=== PATIENT | female | born 2000 | race Caucasian/White ===

== ENCOUNTER 2024-04-09 21:24 | Emergency (ER) | payer OTHER, SELFPAY ==
[2024-04-09 21:31] VITALS: BP 134/83; PULSE 110; RESP 18; RESP 20; TEMP 36.7; O2SAT 99; BMI 44.9
--- NOTE | 2024-04-09 21:31 | ED.GENADULT ---
HPI - General Adult General Chief complaint: Unspecified Complaint, Adult Stated complaint: headache, low hemoglobin Time Seen by Provider: 04/09/24 21:29 History of Present Illness HPI narrative: CC: Headache, Short of Breath , Fatigue pt. with symptoms for a few days. had w/u done with and was prescribed iron , but has not picked them up yet. denies fevers, n/v, diarrhea. 23-year-old woman presenting to the emergency department concern of headache and potentially low hemoglobin. Review of records I see a hemoglobin of 9.2 on 04/08/2024, yesterday. Ferritin was 9.1 and TSH was 3.3 Underlying history she reports of PCOS. Since beginning of March has menstrual bleeding essentially every other week; sometimes a day or 2 of no bleeding or maybe even 4 days. Now has a total headache and went onto [employer] and says she probably should not done that. She was told that she should not take ibuprofen due to bleeding risk. Does not have any melena. No hematemesis. Brief abdominal pain earlier today and little bit of nausea that is resolved. I inquire if she would like me to treat her headache and she says well if she can take ibuprofen she just as soon do that at home. Uncertain health care coverage at this time but has needed to use [employer]. Has cut back hours at work. Becomes tearful as were discussing all of this. Over the years some attempts at or hormonal management but often forgets to take the pills is what I understand. It has been years since she had an ultrasound. She has been bleeding however this last week. Admittedly today was little bit less. She is going through a pad every 2 hours or so. Related Data Previous Rx's ?Medication ?Instructions ?Recorded medroxyprogesterone 10 mg tablet 20 mg (2 x 10 mg) PO DAILY 9 days 04/10/24 (Provera) #18 tabs Allergies Allergy/AdvReac Type Severity Reaction Status Date / Time No Known Drug Allergies Allergy Verified 04/09/24 21:34 Review of Systems Status of ROS: Reports: 6 or more systems reviewed and unremarkable except as noted in History and below [facility] Medical History No significant past medical history Surgical History No significant past surgical history Family History Maternal Grandfather Diabetes Father Alcohol dependence Social History Smoking Status: Never smoker Second hand tobacco smoke exposure: No How often do you have a drink containing alcohol: never AUDIT-C Alcohol total score: 0 Non-prescribed substance use: denies use Exam Narrative: Exam Narrative: Pleasant. A bit tearful initially. Breathing easily. Mucous membranes actually do not look particularly pale. Oropharynx is moist. Heart is tachycardic and in a regular rhythm. Lungs are clear. Well-perfused peripherally. No edema. Abdomen is soft nontender. No masses appreciated. Const: Vital Signs, click to edit/add: Vital Signs - 24 hr 04/09/24 21:31 04/09/24 21:31 04/10/24 00:26 Temperature 98.1 F 98 F Pulse Rate 107 H Pulse Rate [Right Pulse Oximeter] 110 H Respiratory Rate 20 18 Respiratory Rate [ Head] 18 Blood Pressure 105/75 Blood Pressure [Ri ght Upper Arm] 134/83 Pulse Oximetry 99 Oxygen Delivery Me thod Room Air Room Air 04/10/24 00:46 04/10/24 00:48 04/10/24 01:28 CDT Temperature 98.2 F 98.2 F 98.5 F Pulse Rate 103 H 97 96 Pulse Rate [Right Pulse Oximeter] Respiratory Rate 18 16 16 Respiratory Rate [ Head] Blood Pressure 99/64 92/62 92/64 Blood Pressure [Ri ght Upper Arm] Pulse Oximetry 98 98 98 Oxygen Delivery Me thod Room Air Room Air Room Air 04/10/24 01:33 CDT 04/10/24 01:35 CDT 04/10/24 01:50 CDT Temperature 98.5 F 98.4 F 98.5 F Pulse Rate 96 Pulse Rate [Right Pulse Oximeter] 100 98 Respiratory Rate 16 16 16 Respiratory Rate [ Head] Blood Pressure 93/63 Blood Pressure [Ri ght Upper Arm] 95/65 93/63 Pulse Oximetry 98 99 98 Oxygen Delivery Me thod Room Air Room Air Room Air 04/10/24 01:01 PRINCIPLE SOFTWARE ENGINEER 04/10/24 01:03 PRINCIPLE SOFTWARE ENGINEER 04/10/24 01:20 PRINCIPLE SOFTWARE ENGINEER Temperature 98.5 F 98.4 F 98.5 F Pulse Rate 96 98 Pulse Rate [Right Pulse Oximeter] 92 Respiratory Rate 16 94 H 14 Respiratory Rate [ Head] Blood Pressure 93/63 95/65 Blood Pressure [Ri ght Upper Arm] 107/95 H Pulse Oximetry 98 99 97 Oxygen Delivery Me thod Room Air Room Air Room Air 04/10/24 01:35 PRINCIPLE SOFTWARE ENGINEER Temperature 98.6 F Pulse Rate Pulse Rate [Right Pulse Oximeter] 99 Respiratory Rate 18 Respiratory Rate [ Head] Blood Pressure Blood Pressure [Ri ght Upper Arm] 98/69 Pulse Oximetry 98 Oxygen Delivery Me thod Room Air Documenting provider has reviewed patient's vital signs: yes Course Vital Signs Vital signs: Initial Vital Signs Temperature 98.1 F 04/09/24 21:31 Temperature Source Temporal Artery Scan 04/09/24 21:31 Pulse Rate 110 H 04/09/24 21:31 Respiratory Rate 20 04/09/24 21:31 Blood Pressure 134/83 04/09/24 21:31 Blood Pressure Mean 100 04/09/24 21:31 Blood Pressure Position Sitting 04/09/24 21:31 Pulse Oximetry 99 04/09/24 21:31 Oxygen Delivery Method Room Air 04/09/24 21:31 Vital Signs Temperature 98.1 F 04/09/24 21:31 Pulse Rate 110 H 04/09/24 21:31 Respiratory Rate 20 04/09/24 21:31 Blood Pressure 134/83 04/09/24 21:31 Pulse Oximetry 99 04/09/24 21:31 Oxygen Delivery Method Room Air 04/09/24 21:31 Temperature 98.6 F 04/10/24 01:35 PRINCIPLE SOFTWARE ENGINEER Pulse Rate 99 04/10/24 01:35 PRINCIPLE SOFTWARE ENGINEER Respiratory Rate 18 04/10/24 01:35 PRINCIPLE SOFTWARE ENGINEER Blood Pressure 98/69 04/10/24 01:35 PRINCIPLE SOFTWARE ENGINEER Pulse Oximetry 98 04/10/24 01:35 PRINCIPLE SOFTWARE ENGINEER Oxygen Delivery Method Room Air 04/10/24 01:35 PRINCIPLE SOFTWARE ENGINEER Medications Administered Medications: Discontinued Medications Generic Name Dose Route Start Last Admin Trade Name Freq PRN Reason Stop Dose Admin Medroxyprogesterone Acetate 60 mg 04/09/24 23:40 04/09/24 23:58 Medroxyprogesterone 5 Mg Tablet PO 04/09/24 23:41 60 mg ONCE ONE Administration Medical Decision Making MDM Narrative Medical decision making narrative: Is describing what is likely intermittent on long-term menometrorrhagia with a history of PCOS. Would likely need some hormonal management. Does have symptoms of anemia. I do think it would be good idea to repeat hemoglobin. Given a dose of ibuprofen for headache in the interim. Hemoglobin comes back admittedly surprisingly low at 6.9. This is a drop of 2.3 g since yesterday. I did discuss this case with OBGYN banjo repair person for further recommendation. She does decline a speculum exam and so we proceed only with transvaginal ultrasound. Reported to me by lap hand tool as evidence of PCOS and thickened endometrium. Also bleeding lightly. Parents arrive to accompany. She is symptomatic with active bleeding with a hemoglobin of less than 7 at this age I think would be prudent to transfuse. Ordered for a couple of units. Will try to manage here in the emergency department. Ordered for 60 mg medroxyprogesterone here in the emergency department. Bleeding did not increase over time here. Tolerated transfusions well. Reports feeling markedly improved. Radiology over-read of ultrasound as below. Discussed all findings with Delmis and her parents.. TECHNIQUE: Transvaginal pelvic ultrasound. COMPARISON: None. FINDINGS: Uterus measures 7.1 x 3.3 x 4.6 cm. Uterus is homogeneous in echotexture, without evidence of discrete mass lesion. Incidental nabothian cysts in the cervix. Endometrium: 11 mm in thickness. No sign of endometrial mass or fluid. Right ovary measures 4.1 x 2.7 x 2.8 cm. Right ovary is within normal limits. Normal-appearing color flow in the right ovary. Left ovary measures 3.9 x 2.7 x 3.1 cm. Left ovary is within normal limits. Normal-appearing color flow in the left ovary. No pelvic free fluid. IMPRESSION: 1. No ultrasound abnormality to strongly suggest cause for bleeding. 2. Incidental nabothian cysts in the cervix. See patient discharge plan for further discussion Medical Records Medical records reviewed: Yes I reviewed the patient's medical records Lab Data Lab results reviewed: Yes I reviewed the patient's lab results Labs: Lab Results 04/09/24 04/09/24 Range/Units 21:57 22:12 Hgb 6.9 L* (12.0-16.0) gm/dL HCG, Qual Negative (Negative) Lab Acknowledgement New Spec Needed Blood Type O Positive Antibody Screen NEGATIVE Crossmatch (AHG) See Detail Discharge Plan Discharge Clinical Impression: Menometrorrhagia, Anemia Additional Instructions: Abbie I did speak with hair boiler with [facility] on-call. Happened to be Dr. Carlson. Recommendations are to take this medroxyprogesterone (Provera) daily for 9 days. It is important that you take all of these pills as prescribed. Consider taking the prescribed iron pills. I would take vitamin-C with the iron tablets as well. Remember that iron can make you little constipated. Stay well-hydrated and eat your fruits and vegetables. I guess citrus could supply your vitamin-C. Follow-up with Dr. Mitchell or with [facility] 1 week. Please call 1st thing Thursday morning for an appointment. Be seen for bleeding such that you are soaking through 1 heavy pad an hour for 2 consecutive hours or feeling again short of breath or lightheaded. Prescriptions: New medroxyprogesterone [Provera] 10 mg tablet 20 mg PO DAILY 9 Days Qty: 18 0RF Follow Up/Referrals: Jeyson Ko MD [Staff Physician] - Stand Alone Forms: [employer] Info Instructions
[2024-04-09 22:09] LABS: Hemoglobin* 6.9 gm/dL (12.0-16.0)
--- OUTSIDE RECORDS SUMMARY | 2024-04-09 22:32 | XMS_ITS | Continuity of Care Document ---
Author Organization [place] - [facility] forrester [facility] Address [address] [place] [phone] Assessment No assessment recorded. Plan of Treatment Reminders Order Date Submit Date Provider Last Modified By Organization Details Last Modified Time Details Appointments None recorde d. Lab ferriti n, serum or plasma 2023 [facility], [address] [place] [address], [id number], 15:23:29 CBC w/ auto diff 2023 [facility], [address] [place] [address], [id number], 12:12:26 TSH, serum or plasma 2023 [facility], [address] [place] [address], [phone], 4 15:23:53 Referral None recorde d. Procedures None recorde d. Surgeries None recorde d. Imaging None recorde d. Medication Orders None recorde d. Patient TargetsNo targets recorded. Patient InstructionsNo instructions recorded. Reason for Referral None Reported. Problems Name Problem SNOMED Code Status Onset Date Resolution Date Notes Provider Name and Address Organization Details Recorded Time Polycystic ovary syndrome 730270950 Active 2020 [place] [address] [place] [address], [phone] , [facility] Emilee 1 15:04:08 Iron deficiency anemia 75392787 Active 2023 QIANA MALLOY MD [address] [place], [address], [facility]iodroid [facility] 4 20:40:58 Notes:Problem: Polycystic ov kike Status: Chronic Problem Notes None recorded. Medical Equipment None Reported. Allergies No known drug allergies Medications Name Sig Start Date Stop Date Status Note LastModified by Organization Details LastModified Time Iron (ferrous sulfate) 325 mg (65 mg iron) tablet Take 1 tablet every other day by oral route, for 3 months. 024 active Not Available Not Available Not Avai lable Mononessa (28) 0.25 mg-35 mcg tablet TAKE 1 TABLET BY ORAL ROUTE EVERY DAY 017 active Not Available Not Available Not Avai lable Isibloom 0.15 mg-0.03 mg tablet Take 1 tablet every day by oral route. active Not Available Not Available No t Available Vitals None Recorded Social History None recorded. Functional Status None recorded. Mental Status None recorded. Family History Relationship Description Onset Age of this Age Resolved Age Notes LastModified by Organization Details LastModified Time Mother Impaired glucose tolerance Not available 07/02 15:04:25 Father Family history of Father alive and well [email or web address] Not available 07/02 15:04:42 Medical History Condition Response ADD/ADHD Gynecological History Statement/Question Response Menses Monthly N Duration of Flow (days) 7 Age at Menarche 9 Flow Moderate LMP Approximate Sexually Active? N Obstetrics History GPAL:G 0 P 0 0 0 0 Immunizations Vaccine Type Date Status Provider Name and Address Organization Details Recorded Time COVID-19, mRNA, LNP-S, bivalent, PF, 30 mcg/0.3 mL dose 03/12/2022 completed SHANKAR HINTON [address] [place], [address], [facility]iodroid [facility] 03/12/2022 15:22:50 COVID-19, mRNA, LNP-S, PF, 30 mcg/0.3 mL dose, jalyn-sucrose 05/22/2021 completed SHANKAR HINTON [address] [place], [address], [facility] 05/22/2021 17:10:25 Past Encounters Encounter ID Performer Location Encounter Start Date Encounter Closed Date Diagnosis/Indication Diagnosis SNOMED-CT Code Diagnosis ICD10 Code [id number] QIANA MALLOY MD [facility] [address] [place] [address] 04/07/2024 14:47:17 04/07/2024 15:07:38 Excessive and frequent menstruation 488987326 N92.0 Polycystic ovary syndrome 657541292 E28.2 Health Concerns Section Related Observation LastModified by Organization Detai ls LastModified Time None Recorded Concern Status LastModified by Organization Details LastModified Time None Recorded Payers Encounter Date Sequence Insurance Name Policy Number Policy Morin Covered Member ID Morin Member ID Guarantor Name 04/07/2024 SLIDING FEE SCHEDULE - DISCOUNT Delmis Valenzuela Notes Date Note Type Note Provider Name and Address Organization Details Recorded Time 04/07/2024 text/html HPI Notes: 23 yo female here for telephone viist today. Paitent concerned because she has been having irregular/frequen t vaginal bleeding for the past 1 month. Some days heavy with clots. Hx pcos with irregular periods lmp october and then no periods until this past month - heavier and come and go. Thianks that she had about 3 periods in the past 1 year. SH: not sexually active so no possibility of QIANA MALLOY MD [address] [place], [address], [facility] 04/07/2024 16:50:40 OBGyn Episode No OBEpisode recorded.
--- OUTSIDE RECORDS SUMMARY | 2024-04-09 22:32 | XMS_ITS | Data Portability ---
Author Organization [place] [facility] [place] [facility] Address [address] [place] [phone] Assessment No assessment recorded. Plan of Treatment Reminders Order Date Submit Date Provider Last Modified By Organization Details Last Modified Time Details Appointments None recorde d. Lab glycohe moglobi n, total, blood 2020 [facility] Not available 10:33:57 CBC w/ auto diff 2020 [facility] Not available 13:45:21 TSH, serum or plasma 2020 [facility] Not available 14:52:07 ferriti n, serum or plasma 2023 [facility], [address] [place] [address], [phone], 15:23:29 CBC w/ auto diff 2023 [facility], [address] [place] [address], [phone], 4 12:12:26 TSH, serum or plasma 2023 [facility], [address] [place] [address], [phone], 15:23:53 Referral None recorde d. Procedures None recorde d. Surgeries None recorde d. Imaging None recorde d. Medication Orders Apri 0.15 mg-0.03 mg tablet 2020 021 [email or web address] Not available 15:02:23 Patient TargetsNo targets recorded. Patient Instructions Encounter Date Encounter Id Patient Instructions Last Modified By Organization Details Last Modified Time 07/02/2020 [id number] Vitamin D (2,000 International Units) every day. I'll call you with your lab results and I'll also want to know how your periods are going after 2-3 months on the pill. Expect some spotting this month; that is normal as your body gets adjusted to the hormones in the pill. [email or web address] Not available 07/02/2020 15:26:16 Reason for Referral None Reported. Results Created Date Observation Date Name Description Value Unit Range Abnormal Flag Note LastModifiedBy Organization Detail LastModifiedTime 07/04/19 21 07/04/2020 glyco hemog lobin , total , blood A1C 5.1 % <5.7 normal Not Available [facility] [address], [place], [address], 07/06/2020 09:10:44 09/12/19 22 09/11/2021 TSH, serum or plasm a TSH 2.09 Not Available Not Availa ble 09/12/2021 13:16:24 09/12/19 22 09/11/2021 CBC w/ diff white blood count 9.1 Not Available Not Available 12/2021 12:34:17 09/12/19 22 09/11/2021 CBC w/ diff hemoglobin 14.5 Not Available Not Jessica ilable 09/12/2021 12:34:17 09/12/19 22 09/11/2021 CBC w/ diff platelet count 203 Not Available Not Available 12/2021 12:34:17 09/12/19 22 09/11/2021 HbA1c (hemo globi n A1c), blood A1C 5.4 Not Available [place] [facility] [place], [address], 09/16/2021 21:59:19 06/23/19 24 06/23/2023 tb (M tuber culos is), ifn-g [facility] , blood interferon gold neg normal Not Available [facility] [address] [place], [address], 06/25/2023 21:05:40 Result Notes None recorded. Problems Name Problem SNOMED Code Status Onset Date Resolution Date Notes Provider Name and Address Organization Details Recorded Time Polycystic ovary syndrome 692352357 Active 2020 Norma Cornelius NP [address] [place], [address], [facility] 1 15:04:08 Iron deficiency anemia 94849709 Active 2023 QIANA MALLOY MD [address] [place], [address], [facility] 4 20:40:58 Notes:Problem: Polycystic ov kike Status: [...] Available Not Available No t Available Vitals Date Recorded Body height Body mass index (BMI) Body weight Heart rate Systolic blood pressure Diastolic blood pressure Provider Name and Address Organization Details Last Updated DateTime 1 151.77 cm 40.1 kg/m2 94714.6 9 g 90 /min 117 mm[Hg] 89 mm[Hg] Norma Cornelius NP [address] [place], [address], [facility] 1 14:37:02 Social History None recorded. Functional Status None recorded. Mental Status None recorded. Family History Relationship Description Onset Age of this Age Resolved Age Notes LastModified by Organization Details LastModified Time Mother Impaired glucose tolerance [email or web address] Not available 07/02 15:04:25 Father Family history of Father alive and well [email or web address] Not available 07/02 15:04:42 Medical History Condition [...] mcg/0.3 mL dose 03/12/2022 completed SHANKAR HINTON [address] [place] [address] [place], [address], [facility] 03/12/2022 15:22:50 COVID-19, mRNA, LNP-S, PF, 30 mcg/0.3 mL dose, jalyn-sucrose 05/22/2021 completed SHANKAR HINTON [address] [place] [address] [place], [address], [facility] 05/22/2021 17:10:25 Past Encounters Encounter ID Performer Location Encounter Start Date Encounter Closed Date Diagnosis/Indication Diagnosis SNOMED-CT Code Diagnosis ICD10 Code [id number] Norma Cornelius NP [facility] [address] [place] [address] [place] [address] 07/02/2020 14:15:55 07/02/2020 15:00:31 Polycystic ovary syndrome 767246899 E28.2 Fatigue 50617331 R53.83 Mood swings 40684901 R45 .86 Body mass index 30+ - obesity 764307275 Z68.41 [id number] SHANKAR HINTON [facility] [address] [place] [address] [place] [address] 05/22/2021 17:03:07 05/22/2021 18:00:46 Administration of SARS-CoV-2 mRNA vaccine 8880491861 Z23 [id number] SHANKAR HINTON [facility] [address] [place] [address] [place] [address] 03/12/2022 15:14:11 03/12/2022 16:05:37 Administration of SARS-CoV-2 mRNA vaccine 3062189557 Z23 [id number] QIANA MALLOY MD [facility] [address] [place] [address] 04/07/2024 14:47:17 04/07/2024 15:07:38 Excessive and frequent menstruation 316368953 N92.0 Polycystic ovary syndrome 379469626 E28.2 Health Concerns Section Related Observation LastModified by Organization Detai ls LastModified Time None Recorded Concern Status LastModified by Organization Details LastModified Time None Recorded Advance Directives Directive None Recorded Payers Encounter Date Sequence Insurance Name Policy Number Policy Morin Covered Member ID Morin Member ID Guarantor Name 07/02/2020 SLIDING FEE SCHEDULE - DISCOUNT Delmis Mazin Valenzuela 05/22/2021 SLIDING FEE SCHEDULE - DISCOUNT Delmis Mazin Valenzuela 03/12/2022 SLIDING FEE SCHEDULE - DISCOUNT Delmis Mazin Valenzuela 04/07/2024 SLIDING FEE SCHEDULE - DISCOUNT Delmiskostas Valenzuela Notes Date Note Type Note Provider Name and Address Organization Details Recorded Time 07/02/2020 text/html HPI Notes: 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 Irregular periods and increased cramping x 2-3 moths. LMP 11/20. Menarche ~9. Always had irregular periods and diagnosed with PCOS in adolescence. On VINAY for 18 months in high school; can't remember how it went. Did have an U/S which showed ovarian cysts at age 12. Settled into a pattern of q1-2 months in later teens; very heavy with cramps and moodiness. Periods last 7 days; heavy flow for 3 days. Will change tampon q3 hours. Cramping just at beginning; doesn't take any analgesics, just teas. Increasingly having intense cramping but they her period doesn't come. Managing facial hair with plucking. Continues to experience acne. 2) Weakness: x 1 month. Notices that when she is wrestling with her brother and climbing stairs she feels more weak than normal. Has an irregular sleep schedule; sometimes to sleep at 10, other night 12 or 1:30am. Never has difficulty falling asleep. Occasionally has sleep paralysis. No bowel changes, no skin changes. More acne than normal. Eats red meat 2-3x/week. Fairly few dark green vegetables. Tired and winded when she gets to the top of the stairs. This job is a lot less active than her prior jobs. 3) Labile emotions: Also a increased over past month. Mother calls her babyish; feels sensitive and vulnerable. Used to see therapist at [facility] for slight anxiety and depression and ADD. Not crabby or irritable. No SI. Enjoys spending time with friends. See PHQ. Concerned about weight. Has lost over 30 pounds in the past but subsequently gained it back. PMH: PCOS. PSH: None. Medications: None. NKDA. No smoking; no second hand smoke. Drinks: 1x/week. Family History: Mother with prediabetes now gone after diet changes. Norma Cornelius NP [address] [place], [address], [facility] 07/02/2020 15:29:47 05/22/2021 text/html HPI Notes: Requesting Covid 19 vaccine OBIEKostas MARTINEZ [facility] [address] [place], [address], [facility] 05/22/2021 17:10:36 03/12/2022 text/html HPI Notes: Requesting Covid 19 vaccine booster, last booster 05/28 OBIE MARTINEZ, [facility] [address] [place], [address], [facility] 03/12/2022 15:22:52 04/07/2024 text/html HPI Notes: 23 yo female here for telephone viist today. Jonas concerned because she has been having irregular/frequent vaginal bleeding for the past 1 month. Some days heavy with clots. Hx pcos with irregular periods lmp october and then no periods until this past month - heavier and come and go. Thianks that she had about 3 periods in the past 1 year. SH: not sexually active so no possibility of QIANA MALLOY MD [address] [place], [address], [facility] 04/07/2024 16:50:40 OBGyn Episode No OBEpisode recorded.
--- OUTSIDE RECORDS SUMMARY | 2024-04-09 22:32 | XMS_ITS | Clinical Summary ---
Author Organization [facility] Address [place], [place] [address] Care Team Providers Care Motion Picture Equipment Machinist Name Role Phone [facility] Primary Care Pr ovider Allergies No known active allergies Medications Medication Sig Dispensed Refills Start Date End Date Status norethin reyes-eth estrad-fe, 1-20 mg-mcg, (LOESTRIN FE 06/27; JUNEL FE 06/27) tabletIndications:PC OS (polycystic ovarian syndrome) Take 1 Tablet by mouth once daily. 90 Tablet 3 08/01/2022 Active tretinoin 0.05 % 0.05 % creamIndications:Rob nthosis nigricans Apply a thin layer to affected areas once daily. 45 g 1 08/07/2022 Active ammonium lactate 12% topical (LACHYDRIN) 12 % lotionIndications:Ac anthosis nigricans Apply topically to affected area(s) two times daily. 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 08/01/2022 Polycystic ovary syndrome 07/02/2020 Sleep disorder 06/25/2012 Amenorrhea 12/02/2011 Adjustment disorder with mixed anxiety and depre ssed mood 05/29/2010 Deliberate self-cutting 05/29/2010 Family conflict 05/29/2010 Encounters Date Type Department Care Team Description 02/01/2024 Nurse Triage [facility] [address] [place] [address] Clinic, [facility] Knee Pain/problem (Left knee pain after fall.) from Last 3 Months Immunizations Name Administration Dates Next Due BCG Vaccine (Percutaneous) 01/21/1999 COVID-19 vaccine ([employer]-Bio NTech 30mcg/0.3mL) 12YO+ BIVALENT PF, MDV 03/12/2022 COVID-19 vaccine (Pfizer-Bio NTech 30mcg/0.3mL) PF, MDV 07/10/2020,06/19/2020 DTP 10/27/2002, 1,05/10/1999,02/15,01/21/1999 Hepatitis A (Peds) 01/11/2013,02/04/2012 Hepatitis B (Peds) 05/10/1999,02/15/1999, 999 Hib Conjugate, Unspecified 05/10/1999,02/15/1999 ,01/21/1999 Human Papilloma Virus Vaccine 07/27/2012, 012,02/04/2012 Influenza A (H1N1), Inactivated 05/28/2009 Influenza A (H1N1), Inactiva emile (Age >=3 Years) 05/28/2009 Influenza, IIV3 (Age 6-35 mos) 04/08/2011,2008 Influenza, IIV3 (Age >=3 years) 03/28/20 13,03/26/2012,04/08/2011,05/03,05/28/2009 Influenza, IIV4 04/11/2021,04/11/2020,03/04/2018 Influenza,LAIV4 Live Intrana bia (Flumist) 05/22/2015 MENINGOCOCCAL VACCINE 2 VIAL 2MO-55YO (MENVEO) 02/04/2012 MMR 11/29/2004,11/05/1999 Oral Polio Vaccine 11/05/1999, 9,02/15/1999,01/21 Tdap 08/01/2022,01/27/2011 Varicella Vaccine 01/27/2011,03/29/2006 Family History Medical History Relation Name Comments Diabetes Maternal Grandfather Asthma No Family History Cancer-breast No Family History Heart Disease No Family History Hyperlipidemia No Family History Relation Name Status Comments Maternal Grandfather Social History Tobacco Use Types Packs/Day Years Used Date Smoking Tobacco: Never Smokeless Tobacco: Never Tobacco Cessation:Counseling Given: Not Answered Alcohol Use Standard Drinks/Week Comments Yes 0 (1 standard drink = 0.6 oz pur e alcohol) occ PHQ-2 Answer Date Recorded PHQ-2 TOTAL SCORE 3 12/02/2022 Social Connections Answer Date Recorded Frequency of Communication with Friends and Fami ly Not on file 08/01/2022 Sex and Gender Information Value Date Recorded Sex Assigned at Not on file Gender Identity Not on file Sexual Orientation Not on file Obstetrics History Last Filed Vital Signs Vital Sign Reading Time Taken Comments Blood Pressure 136/83 08/01/2022 1:39 PM [employer]ACH[employer]ING [employer]PERVISOR Pulse 100 08/01/2022 1:39 PM [employer]ACH[employer]ING [employer]PERVIS[employer] Temperature 37.1 ??C (98.7 ??F) 08/01/2022 1:39 PM CS T Respiratory Rate - - Oxygen Saturation 98% 08/01/2022 1:39 PM [employer]ING SUPERVISOR Inhaled Oxygen Concentration - - Weight 98.2 kg (216 lb 9.6 oz) 08/01/2022 1:39 P M [employer]ING [employer]PERVISOR Height 152.6 cm (5' 0.08) 08/01/2022 1:39 PM CS T Body Mass Index 42.19 08/01/2022 1:39 PM [employer]ING SUPERVISOR Plan of Treatment Health Maintenance Due Date Last Done Comments HIV for age 15-65 2013 Hepatitis C screening for age 18-79 2016 Pap test for age 21-65 10/27/2019 BMI (ht and wt on same day) for age 18+ 08/01/2023 08/01/2022, 08/20/2018, 01/06/2018 Depression screening for age 12+ 12/03/2023 12/02/2022, 09/18/2022, 08/01/2022, Additional history exists COVID-19 vaccine series ( season) 2024 03/12/2022, 05/22/2021, 07/10/2020, Additional history exists Influenza for age 9-49 02/07/2024 , 04/11/2020, 03/04/2018, Additional history exists Tetanus booster 08/01/2032 08/01/2022, 01/27/2011 HPV series for age 9-26 Completed 07/27/19 13, 03/26/2012, 02/04/2012 Tdap Completed 08/01/2022, 01/27/2011 Pneumococcal series for age 6-64 Aged Out No longer eligible based on patient's age to complete this topic Care Teams Motion Picture Equipment Machinist Relationship Specialty Start Date End Date Clinic, [facility] [address] [facility] [place] [address] PCP - General 01/18/24
--- NOTE | 2024-04-09 22:38 | CRLHL7_ITS ---
For Patients: As a result of the Century Cures Act, medical imaging exams and procedure reports are released immediately into your electronic medical record. You may view this report before your referring provider. If you have questions, please contact your health care provider. INDICATION: Menometrorrhagia, PCOS, severe anemia. Bleeding on and off since March, currently bleeding. TECHNIQUE: Transvaginal pelvic ultrasound. COMPARISON: None. FINDINGS: Uterus measures 7.1 x 3.3 x 4.6 cm. Uterus is homogeneous in echotexture, without evidence of discrete mass lesion. Incidental nabothian cysts in the cervix. Endometrium: 11 mm in thickness. No sign of endometrial mass or fluid. Right ovary measures 4.1 x 2.7 x 2.8 cm. Right ovary is within normal limits. Normal-appearing color flow in the right ovary. Left ovary measures 3.9 x 2.7 x 3.1 cm. Left ovary is within normal limits. Normal-appearing color flow in the left ovary. No pelvic free fluid. IMPRESSION: 1. No ultrasound abnormality to strongly suggest cause for bleeding. 2. Incidental nabothian cysts in the cervix. Dictated by Victor Hugo Solis MD @ 04/10/2024 12:16:03 AM Dictated by: Victor Hugo Solis MD @ 04/10/2024 00:16:15 (Electronically Signed)
[2024-04-09 22:55] LABS: Lab Add On Test New Spec Needed
[2024-04-09 22:59] LABS: HCG Qualitative Serum* Negative (Negative)
[2024-04-09] MEDS: MEDROXYPROGESTERONE 5 MG TABLET 60 MG PO (23:58)
[2024-04-10] VITALS (10 sets, daily range): BP systolic 92–107; BP diastolic 62–95; PULSE 92–107; RESP 14–94; TEMP 36.6–37; O2SAT 97–99
== END 2024-04-10 01:55 | disposition home or self-care (01) ==
PROVIDERS: Emergency Provider Family Medicine
DX: N92.1 Excessive and frequent menstruation with irregular cycle (principal); D64.9 Anemia, unspecified
CPT/HCPCS: 36415; 36430; 76830; 81025; 84703; 85018; 86850; 86900; 86901; 86922; 99284; A9270; P9016

== ENCOUNTER 2024-06-14 10:01 | Outpatient (CLI) | payer OTHER, SELFPAY | END 2024-06-14 10:02 | disposition home or self-care (01) | PROVIDERS: Visit Provider Obstetrics & Gynecology | DX: E28.2 Polycystic ovarian syndrome (principal) | CPT/HCPCS: 80061; 83498; 84146; 84270; 84402; 84403 ==